=== PATIENT | female | born 1975 ===

== ENCOUNTER 2019-12-12 16:58 | Emergency (ER) | payer SELFPAY ==
[~2019-12-12] VITALS: Ht 175.3 cm; Wt 90.1 kg
[2019-12-12 17:02] VITALS: BP 138/78
--- NOTE | 2019-12-12 17:10 | NUR ---
PT AMBULATORY WITH STEADY GAIT FROM TRIAGE TO ROOM.
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
--- NOTE | 2019-12-12 17:28 | NUR ---
PT IN RADIOLOGY NOW.
[2019-12-12] MEDS ORDERED: KETOROLAC 30 MG/1 ML IM ONE (17:30)
[2019-12-12] MEDS ORDERED: METHOCARBAMOL 750 MG TABLET ONE (17:30)
[2019-12-12] MEDS ORDERED: METHOCARBAMOL 750 MG TABLET PO ONE (17:30)
[2019-12-12] MEDS ORDERED: OXYcodone/APAP 5/325MG TABLET PO ONE (17:30)
[2019-12-12] MEDS ORDERED: OXYcodone/APAP 5/325MG TABLET ONE (17:31)
[2019-12-12] MEDS ORDERED: KETOROLAC 30 MG/1 ML ONE (17:31)
--- NOTE | 2019-12-12 17:49 | NUR ---
PT MEDICATED PER EMAR.
== END 2019-12-12 19:05 | disposition home or self-care (01) ==
LOC: ED 17:30
DX: S39.012A Strain of muscle, fascia and tendon of lower back, initial encounter (principal); Z87.81 Personal history of (healed) traumatic fracture; X58.XXXA Exposure to other specified factors, initial encounter; Y93.89 Activity, other specified; Y92.89 Other specified places as the place of occurrence of the external cause; Y99.8 Other external cause status
CPT/HCPCS: 72110; 96372; 99283; J1885

== ENCOUNTER 2020-01-08 07:33 | Emergency (ER) | payer SELFPAY ==
[~2020-01-08] VITALS: Ht 175.3 cm; Wt 85.5 kg
[2020-01-08 07:34] VITALS: BP 114/68
--- NOTE | 2020-01-08 07:54 | NUR ---
[employer]: PT AMBULATORY TO ROOM FROM LOBBY
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
[2020-01-08] MEDS ORDERED: OXYcodone/APAP 5/325MG TABLET ONE (10:47)
[2020-01-08] MEDS ORDERED: OXYcodone/APAP 5/325MG TABLET PO ONE (11:00)
== END 2020-01-08 12:06 ==
LOC: ED 11:55
DX: S32.019A Unspecified fracture of first lumbar vertebra, initial encounter for closed fracture (principal); R51 Headache; F17.200 Nicotine dependence, unspecified, uncomplicated; Y08.89XA Assault by other specified means, initial encounter; Y93.89 Activity, other specified; Y92.410 Unspecified street and highway as the place of occurrence of the external cause; Y99.8 Other external cause status
CPT/HCPCS: 72072; 72110; 99284